=== PATIENT | male | born 1965 | race Caucasian/White ===

== ENCOUNTER 2023-12-24 14:42 | Emergency (ER) | payer SELFPAY ==
[~2023-12-24] VITALS: Ht 175.2 cm; Wt 76.9 kg
[2023-12-24] MEDS ORDERED: ALLOPURINOL300 MG PO (14:57)
[2023-12-24] MEDS ORDERED: LISINOPRIL10 M1 PO (14:58)
[2023-12-24] MEDS ORDERED: AMOX-CLAV 875-1 EACH PO (15:15)
[2023-12-24] MEDS ORDERED: Acetaminophen/Oxycodone Hydr 7.5 MG/325 MG TABLET PO ONE (15:15)
[2023-12-24] MEDS ORDERED: Amoxicillin/Clavulanate Pota 875 MG TAB PO ONE (15:15)
== END 2023-12-24 15:53 | disposition home or self-care (01) ==
LOC: ED 14:42
DX: L02.31 Cutaneous abscess of buttock (principal); I10 Essential (primary) hypertension

== ENCOUNTER → 2024-10-18 | Outpatient (CLI) | payer SELFPAY ==
[~2024-10-18] MED LIST: ALLOPURINOL300 MG PO; AMOX-CLAV 875-1 EACH PO; LISINOPRIL10 M1 PO
== END | disposition home or self-care (01) ==
LOC: CT 16:56
PROVIDERS: ATTEND Internal Medicine
DX: G44.229 Chronic tension-type headache, not intractable (principal)

== ENCOUNTER → 2025-02-28 | Outpatient (CLI) | payer SELFPAY | END | disposition home or self-care (01) | LOC: ORTHO 13:15 | PROVIDERS: ATTEND Orthopaedic Surgery | DX: M17.11 Unilateral primary osteoarthritis, right knee (principal); M71.561 Other bursitis, not elsewhere classified, right knee; M79.89 Other specified soft tissue disorders; M25.561 Pain in right knee ==